=== PATIENT | male | born 1940 | race Asian ===

== ENCOUNTER 2022-01-26 12:15 | Inpatient (IN) | payer MEDICARE, OTHER ==
[~2022-01-26] VITALS: Ht 157.5 cm; Wt 78.5 kg
[2022-01-26 14:30] VITALS: BP 116/68
[2022-01-26] MEDS ORDERED: HYDROCODONE/ACETAMINOPHEN 10-325 MG TABLET PO PRN (14:45)
[2022-01-26] MEDS ORDERED: ACETAMINOPHEN 325 MG TABLET PO PRN (14:45)
[2022-01-26] MEDS: HYDROCODONE/ACETAMINOPHEN 5-325 MG TABLET PO PRN (20:29)
[2022-01-26] MEDS: ATORVASTATIN CALCIUM 40 MG TABLET PO SCH (20:29)
[2022-01-26] MEDS: TAMSULOSIN HCL 0.4 MG CAPSULE PO SCH (20:30)
[2022-01-26] MEDS: SENNA 187 MG TABLET PO SCH (20:30)
[2022-01-26] MEDS: DOCUSATE SODIUM 100 MG CAPSULE PO SCH (20:30)
[2022-01-26] MEDS ORDERED: AmLODIPine BESYLATE 5 MG TABLET PO SCH (21:00)
[2022-01-26 21:29] VITALS: BP 123/56
[2022-01-26] MEDS: ETHYL ALCOHOL 62% ANTISEPTIC NASAL SANITIZER 0.6 ML AMPUL NASAL SCH (22:36)
[2022-01-27] MEDS ORDERED: LOSA-382 PO (03:24)
[2022-01-27] MEDS ORDERED: AMLO-258 PO (03:24)
[2022-01-27] MEDS ORDERED: ALLO-45 PO (03:24)
[2022-01-27] MEDS ORDERED: TAMS-13 PO (03:24)
[2022-01-27] MEDS ORDERED: ATOR40TA28 PO (03:24)
[2022-01-27] MEDS ORDERED: CLOB15OI17 TP (03:24)
[2022-01-27] MEDS ORDERED: METO-558 PO (03:24)
[2022-01-27] MEDS ORDERED: POLY17PO47 PO (03:24)
[2022-01-27] MEDS ORDERED: CALC60CR6 TP (03:24)
[2022-01-27] MEDS ORDERED: APIX5TAB PO (03:24)
[2022-01-27] MEDS ORDERED: INDO-16 PO (03:24)
[2022-01-27 06:28] LABS: BASOPHILS % (AUTO) 0.1 % (0.0-2.0); EOSINOPHILS % (AUTO) 1.7 % (1.0-6.0); HEMATOCRIT 32.6 % (41-53); HEMOGLOBIN 10.8 g/dL (13.5-17.5); LYMPHOCYTES # (AUTO) 0.5 K/uL (1.0-4.8); LYMPHOCYTES % (AUTO) 5.7 % (22.0-44.0); MEAN CORPUSCULAR HEMOGLOBIN 28.4 pg (26.0-34.0); MEAN CORPUSCULAR HGB CONC 33.2 G/dL (31.0-37.0); MEAN CORPUSCULAR VOLUME 86 fL (80-100); MONOCYTES # (AUTO) 1.1 K/uL (0.1-1.0); MONOCYTES % (AUTO) 12.8 % (2.0-9.0); NEUTROPHILS # (AUTO) 6.8 K/uL (1.8-7.7); NEUTROPHILS % (AUTO) 79.7 % (40.0-70.0); PLATELET COUNT (AUTO) 194 K/uL (150-450); RED BLOOD CELL COUNT(AUTO) 3.81 MIL/uL (4.50-5.90); RED CELL DISTRIBUTION WIDTH 13.9 % (11.5-14.5)
[2022-01-27 06:46] LABS: ALANINE AMINOTRANSFERASE 37 U/L (12-78); ALBUMIN 2.1 g/dL (3.4-5.0); ALKALINE PHOSPHATASE 120 U/L (46-116); ANION GAP 11 mmol/L (8-16); ASPARTATE AMINOTRANSFERASE 43 U/L (15-37); BILIRUBIN,TOTAL 0.9 mg/dL (0.1-1.0); CALCIUM, TOTAL 8.9 mg/dL (8.8-10.5); CARBON DIOXIDE 29 mmol/L (22-29); CHLORIDE 94 mmol/L (98-107); CREATININE 0.69 mg/dL (0.60-1.30); GLUCOSE,RANDOM 158 mg/dL (70-110); POTASSIUM 4.6 mmol/L (3.5-5.1); SODIUM SERUM 134 mmol/L (136-145); TOTAL PROTEIN, SERUM 5.7 g/dL (6.4-8.2); UREA NITROGEN, BLOOD 21 mg/dL (7-18)
[2022-01-27 06:59] LABS: GLOMERULAR FILTR. RATE CALC > 60 mL/min (>60)
[2022-01-27 08:00] VITALS: BP 99/60
[2022-01-27] MEDS: ETHYL ALCOHOL 62% ANTISEPTIC NASAL SANITIZER 0.6 ML AMPUL NASAL SCH ×2 (08:25→20:29)
[2022-01-27] MEDS: DOCUSATE SODIUM 100 MG CAPSULE PO SCH ×2 (08:25→20:29)
[2022-01-27] MEDS: ALLOPURINOL 300 MG TABLET PO SCH (08:25)
[2022-01-27] MEDS: OXYGEN THERAPY IH SCH ×2 (08:26→20:28)
[2022-01-27] MEDS: LOSARTAN POTASSIUM 50 MG TABLET PO SCH (08:39)
[2022-01-27] MEDS: METOPROLOL SUCCINATE 50 MG ER TABLET PO SCH (08:40)
[2022-01-27 09:00] VITALS: BP 89/55
[2022-01-27] MEDS ORDERED: AmLODIPine BESYLATE 10 MG TABLET PO SCH (09:00)
[2022-01-27] MEDS: MULTIVITAMINS WITH MINERALS, THERAPEUTIC TABLET PO SCH (11:28)
[2022-01-27] MEDS: ATORVASTATIN CALCIUM 40 MG TABLET PO SCH (20:29)
[2022-01-27] MEDS: SENNA 187 MG TABLET PO SCH (20:29)
[2022-01-27] MEDS: TAMSULOSIN HCL 0.4 MG CAPSULE PO SCH (20:29)
[2022-01-27 20:30] VITALS: BP 139/59
[2022-01-27] MEDS: HYDROCODONE/ACETAMINOPHEN 5-325 MG TABLET PO PRN (20:30)
[2022-01-27] MEDS: CALCIPOTRIENE 0.005% TP SCH (20:31)
[2022-01-27] MEDS ORDERED: AmLODIPine BESYLATE 5 MG TABLET PO SCH (21:00)
[2022-01-28 08:01] VITALS: BP_SYST 115; BP_SYST 132; BP_DIAS 53; BP_DIAS 65
[2022-01-28] MEDS: ALLOPURINOL 300 MG TABLET PO SCH (08:21)
[2022-01-28] MEDS: LOSARTAN POTASSIUM 50 MG TABLET PO SCH (08:21)
[2022-01-28] MEDS: METOPROLOL SUCCINATE 50 MG ER TABLET PO SCH (08:21)
[2022-01-28] MEDS: DOCUSATE SODIUM 100 MG CAPSULE PO SCH ×2 (08:21→20:49)
[2022-01-28] MEDS: MULTIVITAMINS WITH MINERALS, THERAPEUTIC TABLET PO SCH (08:21)
[2022-01-28] MEDS: OXYGEN THERAPY IH SCH ×2 (08:21→20:48)
[2022-01-28] MEDS: ETHYL ALCOHOL 62% ANTISEPTIC NASAL SANITIZER 0.6 ML AMPUL NASAL SCH ×2 (08:26→20:49)
[2022-01-28] MEDS: HYDROCODONE/ACETAMINOPHEN 5-325 MG TABLET PO PRN ×2 (11:00→20:51)
[2022-01-28] MEDS: FAMOTIDINE 20 MG TABLET PO SCH (15:58)
[2022-01-28] MEDS ORDERED: *PATIENT'S OWN MED [ENTER DRUG, DOSE, FREQUENCY IN COMMENTS] CLINICAL ONE (17:15)
[2022-01-28 20:15] VITALS: BP 118/61
[2022-01-28] MEDS: TAMSULOSIN HCL 0.4 MG CAPSULE PO SCH (20:49)
[2022-01-28] MEDS: APIXABAN 5 MG TABLET PO SCH (20:49)
[2022-01-28] MEDS: SENNA 187 MG TABLET PO SCH (20:50)
[2022-01-28] MEDS: ATORVASTATIN CALCIUM 40 MG TABLET PO SCH (20:50)
[2022-01-28] MEDS: CLOBETASOL 0.05% 15 GM OINTMENT TP SCH (20:50)
[2022-01-28] MEDS: METHYLSULFONYLMETHANE PO SCH (20:52)
[2022-01-28] MEDS: CHONDROITIN PO SCH (20:52)
[2022-01-28] MEDS: GLUCOSAMINE PO SCH (20:52)
[2022-01-29] MEDS: FAMOTIDINE 20 MG TABLET PO SCH ×2 (05:57→16:21)
[2022-01-29 08:05] VITALS: BP 127/60
[2022-01-29] MEDS: GLUCOSAMINE PO SCH ×2 (08:19→20:49)
[2022-01-29] MEDS: ETHYL ALCOHOL 62% ANTISEPTIC NASAL SANITIZER 0.6 ML AMPUL NASAL SCH ×2 (08:19→20:47)
[2022-01-29] MEDS: METHYLSULFONYLMETHANE PO SCH ×2 (08:19→20:49)
[2022-01-29] MEDS: CHONDROITIN PO SCH ×2 (08:19→20:49)
[2022-01-29] MEDS: LOSARTAN POTASSIUM 50 MG TABLET PO SCH (08:20)
[2022-01-29] MEDS: METOPROLOL SUCCINATE 50 MG ER TABLET PO SCH (08:20)
[2022-01-29] MEDS: APIXABAN 5 MG TABLET PO SCH ×2 (08:21→20:47)
[2022-01-29] MEDS: MULTIVITAMINS WITH MINERALS, THERAPEUTIC TABLET PO SCH (08:21)
[2022-01-29] MEDS: DOCUSATE SODIUM 100 MG CAPSULE PO SCH ×2 (08:21→20:47)
[2022-01-29] MEDS: ALLOPURINOL 300 MG TABLET PO SCH (08:21)
[2022-01-29] MEDS: OXYGEN THERAPY IH SCH ×2 (08:21→20:47)
[2022-01-29] MEDS: POLYETHYLENE GLYCOL 3350 17 GM PACKET PO PRN (18:22)
[2022-01-29 18:24] LABS: APPEARANCE,URINE CLEAR (CLEAR); BILIRUBIN,URINE NEGATIVE (NEGATIVE); GLUCOSE, URINE (UA) NEGATIVE (NEGATIVE); KETONES,URINE NEGATIVE (NEGATIVE); LEUKOCYTE ESTERASE ,URINE NEGATIVE (NEGATIVE); NITRATE,URINE NEGATIVE (NEGATIVE); OCCULT BLOOD,URINE NEGATIVE (NEGATIVE); PH,URINE 6.5 (5.0-8.0); PROTEIN,URINE NEGATIVE (NEGATIVE); SPECIFIC GRAVITIY, URINE 1.017 (1.003-1.030)
[2022-01-29 18:37] LABS: BACTERIA,URINE None Seen /HPF (None Seen); RBC,URINE None Seen /HPF (0-2); WBC,URINE None Seen /HPF (0-5)
[2022-01-29 20:05] VITALS: BP 141/63
[2022-01-29] MEDS: MELATONIN 3 MG TABLET PO PRN (20:47)
[2022-01-29] MEDS: ATORVASTATIN CALCIUM 40 MG TABLET PO SCH (20:47)
[2022-01-29] MEDS: SENNA 187 MG TABLET PO SCH (20:47)
[2022-01-29] MEDS: TAMSULOSIN HCL 0.4 MG CAPSULE PO SCH (20:47)
[2022-01-29] MEDS: CALCIPOTRIENE 0.005% TP SCH (20:47)
[2022-01-30] MEDS: FAMOTIDINE 20 MG TABLET PO SCH ×2 (06:22→16:31)
[2022-01-30] MEDS: OXYGEN THERAPY IH SCH ×2 (07:50→22:55)
[2022-01-30] MEDS: METOPROLOL SUCCINATE 50 MG ER TABLET PO SCH (07:51)
[2022-01-30] MEDS: ALLOPURINOL 300 MG TABLET PO SCH (07:51)
[2022-01-30] MEDS: LOSARTAN POTASSIUM 50 MG TABLET PO SCH (07:51)
[2022-01-30] MEDS: APIXABAN 5 MG TABLET PO SCH ×2 (07:51→22:56)
[2022-01-30] MEDS: MULTIVITAMINS WITH MINERALS, THERAPEUTIC TABLET PO SCH (07:51)
[2022-01-30] MEDS: DOCUSATE SODIUM 100 MG CAPSULE PO SCH ×2 (07:51→22:56)
[2022-01-30] MEDS: ETHYL ALCOHOL 62% ANTISEPTIC NASAL SANITIZER 0.6 ML AMPUL NASAL SCH ×2 (07:51→22:57)
[2022-01-30] MEDS: METHYLSULFONYLMETHANE PO SCH ×3 (07:52→23:09)
[2022-01-30] MEDS: CHONDROITIN PO SCH ×3 (07:52→23:09)
[2022-01-30] MEDS: GLUCOSAMINE PO SCH ×3 (07:52→23:09)
[2022-01-30 08:13] VITALS: BP 119/64
[2022-01-30 13:49] VITALS: BP 134/62
[2022-01-30 19:50] VITALS: BP 128/61
[2022-01-30] MEDS: CLOBETASOL 0.05% 15 GM OINTMENT TP SCH (22:55)
[2022-01-30] MEDS: SENNA 187 MG TABLET PO SCH (22:56)
[2022-01-30] MEDS: BISACODYL 10 MG RECTAL RECTAL SUPPOSITORY PR PRN (22:56)
[2022-01-30] MEDS: TAMSULOSIN HCL 0.4 MG CAPSULE PO SCH (22:56)
[2022-01-30] MEDS: ATORVASTATIN CALCIUM 40 MG TABLET PO SCH (22:57)
[2022-01-30] MEDS: MELATONIN 3 MG TABLET PO PRN (22:57)
[2022-01-31] MEDS: FAMOTIDINE 20 MG TABLET PO SCH ×2 (06:08→15:52)
[2022-01-31 07:18] LABS: ANION GAP 2 mmol/L (8-16); CALCIUM, TOTAL 8.3 mg/dL (8.8-10.5); CARBON DIOXIDE 33 mmol/L (22-29); CHLORIDE 100 mmol/L (98-107); CREATININE 0.46 mg/dL (0.60-1.30); GLUCOSE,RANDOM 118 mg/dL (70-110); POTASSIUM 4.2 mmol/L (3.5-5.1); SODIUM SERUM 135 mmol/L (136-145); UREA NITROGEN, BLOOD 12 mg/dL (7-18)
[2022-01-31 07:35] LABS: GLOMERULAR FILTR. RATE CALC > 60 mL/min (>60)
[2022-01-31] MEDS: OXYGEN THERAPY IH SCH ×2 (07:44→20:36)
[2022-01-31] MEDS: MULTIVITAMINS WITH MINERALS, THERAPEUTIC TABLET PO SCH (07:45)
[2022-01-31] MEDS: METOPROLOL SUCCINATE 50 MG ER TABLET PO SCH (07:45)
[2022-01-31] MEDS: LOSARTAN POTASSIUM 50 MG TABLET PO SCH (07:45)
[2022-01-31] MEDS: ETHYL ALCOHOL 62% ANTISEPTIC NASAL SANITIZER 0.6 ML AMPUL NASAL SCH ×2 (07:45→20:37)
[2022-01-31] MEDS: ALLOPURINOL 300 MG TABLET PO SCH (07:45)
[2022-01-31] MEDS: APIXABAN 5 MG TABLET PO SCH ×2 (07:45→20:37)
[2022-01-31] MEDS: DOCUSATE SODIUM 250 MG CAPSULE PO SCH ×2 (07:45→20:37)
[2022-01-31] MEDS: CHONDROITIN PO SCH ×2 (07:47→20:37)
[2022-01-31] MEDS: METHYLSULFONYLMETHANE PO SCH ×2 (07:47→20:37)
[2022-01-31] MEDS: GLUCOSAMINE PO SCH ×2 (07:47→20:37)
[2022-01-31 08:20] VITALS: BP 120/65
[2022-01-31] MEDS: HYDROCODONE/ACETAMINOPHEN 5-325 MG TABLET PO PRN (14:03)
[2022-01-31] MEDS ORDERED: *PATIENT'S OWN MED [ENTER DRUG, DOSE, FREQUENCY IN COMMENTS] CLINICAL ONE (18:15)
[2022-01-31] MEDS: TAMSULOSIN HCL 0.4 MG CAPSULE PO SCH (20:37)
[2022-01-31] MEDS: ATORVASTATIN CALCIUM 40 MG TABLET PO SCH (20:37)
[2022-01-31] MEDS: SENNA 187 MG TABLET PO SCH (20:37)
[2022-01-31] MEDS: CALCIPOTRIENE 0.005% TP SCH (20:38)
[2022-01-31 20:40] VITALS: BP 119/59
[2022-01-31] MEDS: CLOBETASOL 0.05% TP PRN (21:58)
[2022-01-31] MEDS: MELATONIN 3 MG TABLET PO PRN (21:59)
[2022-02-01] MEDS: FAMOTIDINE 20 MG TABLET PO SCH ×2 (06:45→16:24)
[2022-02-01] MEDS: LOSARTAN POTASSIUM 50 MG TABLET PO SCH (07:34)
[2022-02-01] MEDS: METHYLSULFONYLMETHANE PO SCH ×2 (07:34→21:03)
[2022-02-01] MEDS: APIXABAN 5 MG TABLET PO SCH ×2 (07:34→21:03)
[2022-02-01] MEDS: MULTIVITAMINS WITH MINERALS, THERAPEUTIC TABLET PO SCH (07:34)
[2022-02-01] MEDS: GLUCOSAMINE PO SCH ×2 (07:34→21:03)
[2022-02-01] MEDS: DOCUSATE SODIUM 250 MG CAPSULE PO SCH ×2 (07:34→21:04)
[2022-02-01] MEDS: ETHYL ALCOHOL 62% ANTISEPTIC NASAL SANITIZER 0.6 ML AMPUL NASAL SCH ×2 (07:34→21:05)
[2022-02-01] MEDS: CHONDROITIN PO SCH ×2 (07:34→21:03)
[2022-02-01] MEDS: ALLOPURINOL 300 MG TABLET PO SCH (07:41)
[2022-02-01] MEDS: OXYGEN THERAPY IH SCH ×2 (07:52→20:00)
[2022-02-01] MEDS: METOPROLOL SUCCINATE 50 MG ER TABLET PO SCH (07:52)
[2022-02-01 09:00] VITALS: BP 98/64
[2022-02-01 09:51] VITALS: BP 99/64
[2022-02-01 12:30] VITALS: BP 100/61
[2022-02-01] MEDS: DICLOFENAC SODIUM 1% 100 GM GEL [2GM] TP SCH ×2 (16:24→21:05)
[2022-02-01 19:34] VITALS: BP 122/64
[2022-02-01] MEDS: ATORVASTATIN CALCIUM 40 MG TABLET PO SCH (21:03)
[2022-02-01] MEDS: MELATONIN 3 MG TABLET PO PRN (21:04)
[2022-02-01] MEDS: TAMSULOSIN HCL 0.4 MG CAPSULE PO SCH (21:04)
[2022-02-01] MEDS: SENNA 187 MG TABLET PO SCH (21:04)
[2022-02-01] MEDS: CLOBETASOL 0.05% 15 GM OINTMENT TP SCH (21:05)
[2022-02-01] MEDS: BISACODYL 10 MG RECTAL RECTAL SUPPOSITORY PR PRN (21:12)
[2022-02-02] MEDS: FAMOTIDINE 20 MG TABLET PO SCH ×2 (06:02→16:03)
[2022-02-02 07:45] VITALS: BP 144/70
[2022-02-02] MEDS ORDERED: INDOMETHACIN 25 MG CAPSULE PO PRN (08:30)
[2022-02-02] MEDS: ETHYL ALCOHOL 62% ANTISEPTIC NASAL SANITIZER 0.6 ML AMPUL NASAL SCH ×2 (08:49→20:44)
[2022-02-02] MEDS: OXYGEN THERAPY IH SCH ×2 (08:49→20:00)
[2022-02-02] MEDS: GLUCOSAMINE PO SCH ×2 (08:50→20:45)
[2022-02-02] MEDS: DOCUSATE SODIUM 250 MG CAPSULE PO SCH ×2 (08:50→20:44)
[2022-02-02] MEDS: METHYLSULFONYLMETHANE PO SCH ×2 (08:50→20:45)
[2022-02-02] MEDS: CHONDROITIN PO SCH ×2 (08:50→20:45)
[2022-02-02] MEDS: LOSARTAN POTASSIUM 50 MG TABLET PO SCH (08:51)
[2022-02-02] MEDS: APIXABAN 5 MG TABLET PO SCH ×2 (08:51→20:44)
[2022-02-02] MEDS: ALLOPURINOL 300 MG TABLET PO SCH (08:52)
[2022-02-02] MEDS: DICLOFENAC SODIUM 1% 100 GM GEL [2GM] TP SCH ×3 (08:52→20:45)
[2022-02-02] MEDS: METOPROLOL SUCCINATE 50 MG ER TABLET PO SCH (08:52)
[2022-02-02] MEDS: MULTIVITAMINS WITH MINERALS, THERAPEUTIC TABLET PO SCH (08:52)
[2022-02-02] MEDS: OMEPRAZOLE 20 MG CAPSULE PO SCH ×2 (08:52→09:05)
[2022-02-02 20:00] VITALS: BP 142/60
[2022-02-02] MEDS: ATORVASTATIN CALCIUM 40 MG TABLET PO SCH (20:44)
[2022-02-02] MEDS: TAMSULOSIN HCL 0.4 MG CAPSULE PO SCH (20:44)
[2022-02-02] MEDS: SENNA 187 MG TABLET PO SCH (20:44)
[2022-02-02] MEDS: CALCIPOTRIENE 0.005% TP SCH (20:45)
[2022-02-03] MEDS ORDERED: DOCU-350 PO (02:40)
[2022-02-03] MEDS ORDERED: FAMO20 PO (02:40)
[2022-02-03] MEDS ORDERED: MULT-413 PO (02:40)
[2022-02-03] MEDS ORDERED: GLUC-206 PO (02:40)
[2022-02-03] MEDS ORDERED: OMEP20 PO (02:40)
[2022-02-03] MEDS ORDERED: SENN8.6T90 PO (02:56)
[2022-02-03] MEDS ORDERED: DICL100G51 TP (02:56)
[2022-02-03] MEDS: FAMOTIDINE 20 MG TABLET PO SCH ×2 (06:08→15:16)
[2022-02-03] MEDS: OXYGEN THERAPY IH SCH ×2 (08:04→20:00)
[2022-02-03] MEDS: CHONDROITIN PO SCH ×2 (08:05→21:13)
[2022-02-03] MEDS: GLUCOSAMINE PO SCH ×2 (08:05→21:13)
[2022-02-03] MEDS: METHYLSULFONYLMETHANE PO SCH ×2 (08:05→21:13)
[2022-02-03] MEDS: ETHYL ALCOHOL 62% ANTISEPTIC NASAL SANITIZER 0.6 ML AMPUL NASAL SCH ×2 (08:06→21:13)
[2022-02-03] MEDS: DOCUSATE SODIUM 250 MG CAPSULE PO SCH ×2 (08:07→21:12)
[2022-02-03] MEDS: METOPROLOL SUCCINATE 50 MG ER TABLET PO SCH (08:09)
[2022-02-03] MEDS: LOSARTAN POTASSIUM 50 MG TABLET PO SCH (08:11)
[2022-02-03] MEDS: OMEPRAZOLE 20 MG CAPSULE PO SCH (08:12)
[2022-02-03] MEDS: MULTIVITAMINS WITH MINERALS, THERAPEUTIC TABLET PO SCH (08:13)
[2022-02-03] MEDS: ALLOPURINOL 300 MG TABLET PO SCH (08:13)
[2022-02-03] MEDS: APIXABAN 5 MG TABLET PO SCH ×2 (08:13→21:12)
[2022-02-03] MEDS: DICLOFENAC SODIUM 1% 100 GM GEL [2GM] TP SCH ×3 (08:15→21:13)
[2022-02-03 08:35] VITALS: BP 118/64
[2022-02-03 08:51] LABS: BASOPHILS % (AUTO) 0.3 % (0.0-2.0); EOSINOPHILS % (AUTO) 4.9 % (1.0-6.0); HEMATOCRIT 32.2 % (41-53); HEMOGLOBIN 10.6 g/dL (13.5-17.5); LYMPHOCYTES # (AUTO) 0.5 K/uL (1.0-4.8); LYMPHOCYTES % (AUTO) 6.5 % (22.0-44.0); MEAN CORPUSCULAR HEMOGLOBIN 28.1 pg (26.0-34.0); MEAN CORPUSCULAR HGB CONC 32.9 G/dL (31.0-37.0); MEAN CORPUSCULAR VOLUME 85 fL (80-100); MONOCYTES # (AUTO) 0.5 K/uL (0.1-1.0); NEUTROPHILS # (AUTO) 5.8 K/uL (1.8-7.7); NEUTROPHILS % (AUTO) 81.3 % (40.0-70.0); PLATELET COUNT (AUTO) 296 K/uL (150-450); RED BLOOD CELL COUNT(AUTO) 3.78 MIL/uL (4.50-5.90); RED CELL DISTRIBUTION WIDTH 14.1 % (11.5-14.5)
[2022-02-03 09:03] LABS: ANION GAP 3 mmol/L (8-16); CALCIUM, TOTAL 8.6 mg/dL (8.8-10.5); CARBON DIOXIDE 32 mmol/L (22-29); CHLORIDE 100 mmol/L (98-107); CREATININE 0.53 mg/dL (0.60-1.30); GLUCOSE,RANDOM 170 mg/dL (70-110); SODIUM SERUM 135 mmol/L (136-145); UREA NITROGEN, BLOOD 11 mg/dL (7-18); URIC ACID 2.5 mg/dL (2.6-7.2)
[2022-02-03 09:04] LABS: GLOMERULAR FILTR. RATE CALC > 60 mL/min (>60)
[2022-02-03] MEDS: CLOBETASOL 0.05% TP PRN ×2 (13:16→21:44)
[2022-02-03 20:00] VITALS: BP 117/69
[2022-02-03] MEDS: TAMSULOSIN HCL 0.4 MG CAPSULE PO SCH (21:12)
[2022-02-03] MEDS: SENNA 187 MG TABLET PO SCH (21:13)
[2022-02-03] MEDS: CALCIPOTRIENE 0.005% TP SCH (21:13)
[2022-02-03] MEDS: ATORVASTATIN CALCIUM 40 MG TABLET PO SCH (21:13)
[2022-02-03] MEDS: CLOBETASOL 0.05% 15 GM OINTMENT TP SCH (21:40)
[2022-02-04] MEDS: FAMOTIDINE 20 MG TABLET PO SCH ×2 (05:56→15:59)
[2022-02-04 08:01] VITALS: BP 125/65
[2022-02-04] MEDS: OXYGEN THERAPY IH SCH ×2 (08:28→20:00)
[2022-02-04] MEDS: METHYLSULFONYLMETHANE PO SCH ×2 (08:29→20:17)
[2022-02-04] MEDS: DICLOFENAC SODIUM 1% 100 GM GEL [2GM] TP SCH ×3 (08:29→20:19)
[2022-02-04] MEDS: GLUCOSAMINE PO SCH ×2 (08:29→20:17)
[2022-02-04] MEDS: APIXABAN 5 MG TABLET PO SCH ×2 (08:29→20:17)
[2022-02-04] MEDS: CHONDROITIN PO SCH ×2 (08:29→20:17)
[2022-02-04] MEDS: DOCUSATE SODIUM 250 MG CAPSULE PO SCH ×2 (08:30→20:17)
[2022-02-04] MEDS: MULTIVITAMINS WITH MINERALS, THERAPEUTIC TABLET PO SCH (08:30)
[2022-02-04] MEDS: METOPROLOL SUCCINATE 50 MG ER TABLET PO SCH (08:30)
[2022-02-04] MEDS: LOSARTAN POTASSIUM 50 MG TABLET PO SCH (08:31)
[2022-02-04] MEDS: ETHYL ALCOHOL 62% ANTISEPTIC NASAL SANITIZER 0.6 ML AMPUL NASAL SCH ×2 (08:31→20:17)
[2022-02-04] MEDS: ALLOPURINOL 300 MG TABLET PO SCH (08:33)
[2022-02-04] MEDS: SENNA 187 MG TABLET PO SCH (20:18)
[2022-02-04] MEDS: ATORVASTATIN CALCIUM 40 MG TABLET PO SCH (20:18)
[2022-02-04] MEDS: CEPHALEXIN MONOHYDRATE 500 MG CAPSULE PO SCH (20:18)
[2022-02-04] MEDS: TAMSULOSIN HCL 0.4 MG CAPSULE PO SCH (20:19)
[2022-02-04] MEDS: MELATONIN 3 MG TABLET PO PRN (20:22)
[2022-02-04 20:45] VITALS: BP 129/61
[2022-02-05] MEDS: FAMOTIDINE 20 MG TABLET PO SCH ×2 (06:18→15:59)
[2022-02-05 08:10] VITALS: BP 118/61
[2022-02-05] MEDS: OXYGEN THERAPY IH SCH ×2 (08:50→20:00)
[2022-02-05] MEDS: CHONDROITIN PO SCH ×2 (08:57→20:10)
[2022-02-05] MEDS: GLUCOSAMINE PO SCH ×2 (08:57→20:10)
[2022-02-05] MEDS: DICLOFENAC SODIUM 1% 100 GM GEL [2GM] TP SCH ×3 (08:57→20:11)
[2022-02-05] MEDS: ETHYL ALCOHOL 62% ANTISEPTIC NASAL SANITIZER 0.6 ML AMPUL NASAL SCH ×2 (08:57→20:12)
[2022-02-05] MEDS: METHYLSULFONYLMETHANE PO SCH ×2 (08:57→20:10)
[2022-02-05] MEDS: DOCUSATE SODIUM 250 MG CAPSULE PO SCH ×2 (08:58→20:08)
[2022-02-05] MEDS: ALLOPURINOL 300 MG TABLET PO SCH (08:58)
[2022-02-05] MEDS: LOSARTAN POTASSIUM 50 MG TABLET PO SCH (08:58)
[2022-02-05] MEDS: MULTIVITAMINS WITH MINERALS, THERAPEUTIC TABLET PO SCH (08:58)
[2022-02-05] MEDS: APIXABAN 5 MG TABLET PO SCH ×2 (08:58→20:09)
[2022-02-05] MEDS: CEPHALEXIN MONOHYDRATE 500 MG CAPSULE PO SCH ×4 (08:58→20:09)
[2022-02-05] MEDS: METOPROLOL SUCCINATE 50 MG ER TABLET PO SCH (08:59)
[2022-02-05] MEDS: CLOBETASOL 0.05% TP PRN ×2 (09:07→20:35)
[2022-02-05 11:02] LABS: BASOPHILS % (AUTO) 0.6 % (0.0-2.0); EOSINOPHILS % (AUTO) 7.9 % (1.0-6.0); HEMATOCRIT 32.4 % (41-53); HEMOGLOBIN 10.4 g/dL (13.5-17.5); LYMPHOCYTES # (AUTO) 0.5 K/uL (1.0-4.8); LYMPHOCYTES % (AUTO) 9.3 % (22.0-44.0); MEAN CORPUSCULAR HEMOGLOBIN 27.7 pg (26.0-34.0); MEAN CORPUSCULAR HGB CONC 32.2 G/dL (31.0-37.0); MEAN CORPUSCULAR VOLUME 86 fL (80-100); MONOCYTES # (AUTO) 0.5 K/uL (0.1-1.0); MONOCYTES % (AUTO) 9.2 % (2.0-9.0); NEUTROPHILS # (AUTO) 4.3 K/uL (1.8-7.7); PLATELET COUNT (AUTO) 331 K/uL (150-450); RED BLOOD CELL COUNT(AUTO) 3.77 MIL/uL (4.50-5.90); RED CELL DISTRIBUTION WIDTH 14.5 % (11.5-14.5)
[2022-02-05 11:56] LABS: ANION GAP 4 mmol/L (8-16); CARBON DIOXIDE 30 mmol/L (22-29); CHLORIDE 103 mmol/L (98-107); CREATININE 0.55 mg/dL (0.60-1.30); GLUCOSE,RANDOM 121 mg/dL (70-110); POTASSIUM 4.4 mmol/L (3.5-5.1); SODIUM SERUM 137 mmol/L (136-145); UREA NITROGEN, BLOOD 13 mg/dL (7-18)
[2022-02-05 11:57] LABS: GLOMERULAR FILTR. RATE CALC > 60 mL/min (>60)
[2022-02-05 12:12] LABS: ERYTHROCYTE SEDIMENTATION RATE 68 MM/HR (0-15)
[2022-02-05 12:33] LABS: C-REACTIVE PROTEIN QUANT 6.39 mg/dL (0.00-0.30)
[2022-02-05] MEDS: POLYETHYLENE GLYCOL 3350 17 GM PACKET PO PRN (13:12)
[2022-02-05] MEDS: TAMSULOSIN HCL 0.4 MG CAPSULE PO SCH (20:08)
[2022-02-05] MEDS: MELATONIN 3 MG TABLET PO PRN (20:09)
[2022-02-05] MEDS: ATORVASTATIN CALCIUM 40 MG TABLET PO SCH (20:09)
[2022-02-05] MEDS: SENNA 187 MG TABLET PO SCH (20:09)
[2022-02-05] MEDS: CLOBETASOL 0.05% 15 GM OINTMENT TP SCH (20:10)
[2022-02-05 20:30] VITALS: BP 121/54
[2022-02-06] MEDS: HYDROCODONE/ACETAMINOPHEN 5-325 MG TABLET PO PRN (04:34)
[2022-02-06] MEDS: FAMOTIDINE 20 MG TABLET PO SCH ×2 (06:36→16:19)
[2022-02-06 07:35] VITALS: BP 133/72
[2022-02-06] MEDS: OXYGEN THERAPY IH SCH ×2 (08:14→20:00)
[2022-02-06] MEDS: ETHYL ALCOHOL 62% ANTISEPTIC NASAL SANITIZER 0.6 ML AMPUL NASAL SCH ×2 (08:14→20:33)
[2022-02-06] MEDS: METHYLSULFONYLMETHANE PO SCH ×2 (08:14→20:34)
[2022-02-06] MEDS: GLUCOSAMINE PO SCH ×2 (08:14→20:34)
[2022-02-06] MEDS: CHONDROITIN PO SCH ×2 (08:14→20:34)
[2022-02-06] MEDS: METOPROLOL SUCCINATE 50 MG ER TABLET PO SCH (08:15)
[2022-02-06] MEDS: DOCUSATE SODIUM 250 MG CAPSULE PO SCH ×2 (08:15→20:35)
[2022-02-06] MEDS: APIXABAN 5 MG TABLET PO SCH ×2 (08:15→20:35)
[2022-02-06] MEDS: MULTIVITAMINS WITH MINERALS, THERAPEUTIC TABLET PO SCH (08:15)
[2022-02-06] MEDS: LOSARTAN POTASSIUM 50 MG TABLET PO SCH (08:15)
[2022-02-06] MEDS: ALLOPURINOL 300 MG TABLET PO SCH (08:16)
[2022-02-06] MEDS: DICLOFENAC SODIUM 1% 100 GM GEL [2GM] TP SCH ×3 (08:16→20:35)
[2022-02-06] MEDS: CEPHALEXIN MONOHYDRATE 500 MG CAPSULE PO SCH ×4 (08:16→20:35)
[2022-02-06] MEDS: ATORVASTATIN CALCIUM 40 MG TABLET PO SCH (20:35)
[2022-02-06] MEDS: SENNA 187 MG TABLET PO SCH (20:35)
[2022-02-06] MEDS: TAMSULOSIN HCL 0.4 MG CAPSULE PO SCH (20:37)
[2022-02-06] MEDS: MELATONIN 3 MG TABLET PO PRN (20:41)
[2022-02-06 21:00] VITALS: BP 127/80
[2022-02-06] MEDS: CALCIPOTRIENE 0.005% TP SCH (21:18)
[2022-02-07] MEDS: HYDROCODONE/ACETAMINOPHEN 5-325 MG TABLET PO PRN (04:25)
[2022-02-07] MEDS: FAMOTIDINE 20 MG TABLET PO SCH ×2 (06:04→16:11)
[2022-02-07 07:35] VITALS: BP 127/61
[2022-02-07] MEDS: GLUCOSAMINE PO SCH ×2 (07:48→20:52)
[2022-02-07] MEDS: METHYLSULFONYLMETHANE PO SCH ×2 (07:48→20:52)
[2022-02-07] MEDS: ETHYL ALCOHOL 62% ANTISEPTIC NASAL SANITIZER 0.6 ML AMPUL NASAL SCH ×2 (07:48→20:52)
[2022-02-07] MEDS: CHONDROITIN PO SCH ×2 (07:48→20:52)
[2022-02-07] MEDS: OXYGEN THERAPY IH SCH ×2 (07:48→20:00)
[2022-02-07] MEDS: DOCUSATE SODIUM 250 MG CAPSULE PO SCH ×2 (07:48→20:51)
[2022-02-07] MEDS: APIXABAN 5 MG TABLET PO SCH ×3 (07:49→20:51)
[2022-02-07] MEDS: LOSARTAN POTASSIUM 50 MG TABLET PO SCH (07:49)
[2022-02-07] MEDS: ALLOPURINOL 300 MG TABLET PO SCH (07:50)
[2022-02-07] MEDS: METOPROLOL SUCCINATE 50 MG ER TABLET PO SCH (07:50)
[2022-02-07] MEDS: CEPHALEXIN MONOHYDRATE 500 MG CAPSULE PO SCH ×4 (07:50→20:51)
[2022-02-07] MEDS: MULTIVITAMINS WITH MINERALS, THERAPEUTIC TABLET PO SCH (07:50)
[2022-02-07] MEDS: DICLOFENAC SODIUM 1% 100 GM GEL [2GM] TP SCH ×3 (07:50→20:52)
[2022-02-07 20:20] VITALS: BP 138/66
[2022-02-07] MEDS: CLOBETASOL 0.05% 60 GM OINTMENT TP SCH (20:50)
[2022-02-07] MEDS: MELATONIN 3 MG TABLET PO PRN (20:51)
[2022-02-07] MEDS: SENNA 187 MG TABLET PO SCH (20:51)
[2022-02-07] MEDS: ATORVASTATIN CALCIUM 40 MG TABLET PO SCH (20:51)
[2022-02-07] MEDS: TAMSULOSIN HCL 0.4 MG CAPSULE PO SCH (20:51)
[2022-02-07] MEDS: CLOBETASOL 0.05% TP PRN (20:51)
[2022-02-08] MEDS: FAMOTIDINE 20 MG TABLET PO SCH ×2 (06:44→17:40)
[2022-02-08 08:10] VITALS: BP 104/42
[2022-02-08 09:00] VITALS: BP 111/53
[2022-02-08] MEDS: ETHYL ALCOHOL 62% ANTISEPTIC NASAL SANITIZER 0.6 ML AMPUL NASAL SCH ×2 (09:16→20:21)
[2022-02-08] MEDS: CEPHALEXIN MONOHYDRATE 500 MG CAPSULE PO SCH ×4 (09:16→20:22)
[2022-02-08] MEDS: ALLOPURINOL 300 MG TABLET PO SCH (09:17)
[2022-02-08] MEDS: MULTIVITAMINS WITH MINERALS, THERAPEUTIC TABLET PO SCH (09:17)
[2022-02-08] MEDS: DOCUSATE SODIUM 250 MG CAPSULE PO SCH ×2 (09:17→20:21)
[2022-02-08] MEDS: METOPROLOL SUCCINATE 50 MG ER TABLET PO SCH (09:17)
[2022-02-08] MEDS: APIXABAN 5 MG TABLET PO SCH ×2 (09:17→20:22)
[2022-02-08] MEDS: LOSARTAN POTASSIUM 50 MG TABLET PO SCH (09:17)
[2022-02-08] MEDS: CHONDROITIN PO SCH ×2 (09:18→20:22)
[2022-02-08] MEDS: METHYLSULFONYLMETHANE PO SCH ×2 (09:18→20:22)
[2022-02-08] MEDS: GLUCOSAMINE PO SCH ×2 (09:18→20:22)
[2022-02-08] MEDS: DICLOFENAC SODIUM 1% 100 GM GEL [2GM] TP SCH ×3 (09:19→20:23)
[2022-02-08] MEDS: OXYGEN THERAPY IH SCH ×2 (13:38→20:00)
[2022-02-08 20:10] VITALS: BP 137/59
[2022-02-08] MEDS: TAMSULOSIN HCL 0.4 MG CAPSULE PO SCH (20:22)
[2022-02-08] MEDS: MELATONIN 3 MG TABLET PO PRN (20:22)
[2022-02-08] MEDS: SENNA 187 MG TABLET PO SCH (20:22)
[2022-02-08] MEDS: ATORVASTATIN CALCIUM 40 MG TABLET PO SCH (20:22)
[2022-02-08] MEDS: CALCIPOTRIENE 0.005% TP SCH (20:23)
[2022-02-09] MEDS: FAMOTIDINE 20 MG TABLET PO SCH ×2 (06:47→17:14)
[2022-02-09 08:00] VITALS: BP 124/55
[2022-02-09] MEDS: DOCUSATE SODIUM 250 MG CAPSULE PO SCH ×2 (09:25→20:33)
[2022-02-09] MEDS: CHONDROITIN PO SCH ×2 (09:25→20:33)
[2022-02-09] MEDS: LOSARTAN POTASSIUM 50 MG TABLET PO SCH (09:25)
[2022-02-09] MEDS: METHYLSULFONYLMETHANE PO SCH ×2 (09:25→20:33)
[2022-02-09] MEDS: APIXABAN 5 MG TABLET PO SCH ×2 (09:25→20:33)
[2022-02-09] MEDS: CEPHALEXIN MONOHYDRATE 500 MG CAPSULE PO SCH ×4 (09:25→20:33)
[2022-02-09] MEDS: MULTIVITAMINS WITH MINERALS, THERAPEUTIC TABLET PO SCH (09:25)
[2022-02-09] MEDS: GLUCOSAMINE PO SCH ×2 (09:25→20:33)
[2022-02-09] MEDS: METOPROLOL SUCCINATE 50 MG ER TABLET PO SCH (09:26)
[2022-02-09] MEDS: ALLOPURINOL 300 MG TABLET PO SCH (09:26)
[2022-02-09] MEDS: DICLOFENAC SODIUM 1% 100 GM GEL [2GM] TP SCH ×3 (09:26→20:34)
[2022-02-09] MEDS: ETHYL ALCOHOL 62% ANTISEPTIC NASAL SANITIZER 0.6 ML AMPUL NASAL SCH ×2 (09:28→20:33)
[2022-02-09] MEDS: OXYGEN THERAPY IH SCH ×2 (13:47→20:00)
[2022-02-09] MEDS: CLOBETASOL 0.05% TP PRN (18:33)
[2022-02-09 20:00] VITALS: BP 145/76
[2022-02-09] MEDS: TAMSULOSIN HCL 0.4 MG CAPSULE PO SCH (20:33)
[2022-02-09] MEDS: SENNA 187 MG TABLET PO SCH (20:33)
[2022-02-09] MEDS: ATORVASTATIN CALCIUM 40 MG TABLET PO SCH (20:33)
[2022-02-09] MEDS: CLOBETASOL 0.05% 60 GM OINTMENT TP SCH (20:34)
[2022-02-10] MEDS: FAMOTIDINE 20 MG TABLET PO SCH ×2 (06:27→16:11)
[2022-02-10 07:35] VITALS: BP 147/67
[2022-02-10] MEDS: ETHYL ALCOHOL 62% ANTISEPTIC NASAL SANITIZER 0.6 ML AMPUL NASAL SCH ×2 (08:00→20:46)
[2022-02-10] MEDS: OXYGEN THERAPY IH SCH ×2 (08:00→20:00)
[2022-02-10] MEDS: CHONDROITIN PO SCH ×2 (08:01→20:47)
[2022-02-10] MEDS: MULTIVITAMINS WITH MINERALS, THERAPEUTIC TABLET PO SCH (08:01)
[2022-02-10] MEDS: DOCUSATE SODIUM 250 MG CAPSULE PO SCH ×2 (08:01→20:47)
[2022-02-10] MEDS: METHYLSULFONYLMETHANE PO SCH ×2 (08:01→20:47)
[2022-02-10] MEDS: METOPROLOL SUCCINATE 50 MG ER TABLET PO SCH (08:01)
[2022-02-10] MEDS: GLUCOSAMINE PO SCH ×2 (08:01→20:47)
[2022-02-10] MEDS: LOSARTAN POTASSIUM 50 MG TABLET PO SCH (08:01)
[2022-02-10] MEDS: DICLOFENAC SODIUM 1% 100 GM GEL [2GM] TP SCH ×3 (08:02→20:46)
[2022-02-10] MEDS: ALLOPURINOL 300 MG TABLET PO SCH (08:02)
[2022-02-10] MEDS: APIXABAN 5 MG TABLET PO SCH ×2 (08:02→20:47)
[2022-02-10] MEDS: CEPHALEXIN MONOHYDRATE 500 MG CAPSULE PO SCH ×4 (08:02→20:47)
[2022-02-10 20:42] VITALS: BP 143/80
[2022-02-10] MEDS: TAMSULOSIN HCL 0.4 MG CAPSULE PO SCH (20:47)
[2022-02-10] MEDS: MELATONIN 3 MG TABLET PO PRN (20:47)
[2022-02-10] MEDS: SENNA 187 MG TABLET PO SCH (20:47)
[2022-02-10] MEDS: ATORVASTATIN CALCIUM 40 MG TABLET PO SCH (20:47)
[2022-02-10] MEDS: CALCIPOTRIENE 0.005% TP SCH (20:48)
[2022-02-10] MEDS: CLOBETASOL 0.05% TP PRN (20:48)
[2022-02-11] MEDS: FAMOTIDINE 20 MG TABLET PO SCH ×2 (06:56→15:51)
[2022-02-11] MEDS: OXYGEN THERAPY IH SCH ×2 (08:29→20:00)
[2022-02-11] MEDS: APIXABAN 5 MG TABLET PO SCH ×2 (08:29→20:36)
[2022-02-11] MEDS: MULTIVITAMINS WITH MINERALS, THERAPEUTIC TABLET PO SCH (08:29)
[2022-02-11] MEDS: METOPROLOL SUCCINATE 50 MG ER TABLET PO SCH (08:30)
[2022-02-11] MEDS: METHYLSULFONYLMETHANE PO SCH ×2 (08:30→20:36)
[2022-02-11] MEDS: DOCUSATE SODIUM 250 MG CAPSULE PO SCH ×2 (08:30→20:36)
[2022-02-11] MEDS: LOSARTAN POTASSIUM 50 MG TABLET PO SCH (08:30)
[2022-02-11] MEDS: CHONDROITIN PO SCH ×2 (08:30→20:36)
[2022-02-11] MEDS: GLUCOSAMINE PO SCH ×2 (08:30→20:36)
[2022-02-11] MEDS: ETHYL ALCOHOL 62% ANTISEPTIC NASAL SANITIZER 0.6 ML AMPUL NASAL SCH ×2 (08:31→20:37)
[2022-02-11] MEDS: CEPHALEXIN MONOHYDRATE 500 MG CAPSULE PO SCH ×4 (08:31→20:37)
[2022-02-11] MEDS: DICLOFENAC SODIUM 1% 100 GM GEL [2GM] TP SCH ×3 (08:31→20:37)
[2022-02-11] MEDS: ALLOPURINOL 300 MG TABLET PO SCH (08:32)
[2022-02-11 08:54] VITALS: BP 118/50
[2022-02-11 20:15] VITALS: BP 111/56
[2022-02-11] MEDS: MELATONIN 3 MG TABLET PO PRN (20:36)
[2022-02-11] MEDS: TAMSULOSIN HCL 0.4 MG CAPSULE PO SCH (20:36)
[2022-02-11] MEDS: SENNA 187 MG TABLET PO SCH (20:37)
[2022-02-11] MEDS: CLOBETASOL 0.05% TP PRN (20:37)
[2022-02-11] MEDS: ATORVASTATIN CALCIUM 40 MG TABLET PO SCH (20:37)
[2022-02-11] MEDS: CLOBETASOL 0.05% 60 GM OINTMENT TP SCH (20:37)
[2022-02-12] MEDS: FAMOTIDINE 20 MG TABLET PO SCH ×2 (06:14→16:47)
[2022-02-12 06:37] LABS: BASOPHILS % (AUTO) 0.9 % (0.0-2.0); EOSINOPHILS % (AUTO) 11.6 % (1.0-6.0); HEMOGLOBIN 10.3 g/dL (13.5-17.5); LYMPHOCYTES # (AUTO) 0.7 K/uL (1.0-4.8); LYMPHOCYTES % (AUTO) 14.2 % (22.0-44.0); MEAN CORPUSCULAR HEMOGLOBIN 28.1 pg (26.0-34.0); MEAN CORPUSCULAR HGB CONC 32.3 G/dL (31.0-37.0); MEAN CORPUSCULAR VOLUME 87 fL (80-100); MONOCYTES # (AUTO) 0.5 K/uL (0.1-1.0); MONOCYTES % (AUTO) 10.3 % (2.0-9.0); NEUTROPHILS # (AUTO) 2.9 K/uL (1.8-7.7); PLATELET COUNT (AUTO) 270 K/uL (150-450); RED BLOOD CELL COUNT(AUTO) 3.67 MIL/uL (4.50-5.90); RED CELL DISTRIBUTION WIDTH 14.9 % (11.5-14.5)
[2022-02-12 07:00] LABS: ANION GAP 6 mmol/L (8-16); C-REACTIVE PROTEIN QUANT 1.44 mg/dL (0.00-0.30); CALCIUM, TOTAL 8.8 mg/dL (8.8-10.5); CARBON DIOXIDE 30 mmol/L (22-29); CHLORIDE 104 mmol/L (98-107); CREATININE 0.54 mg/dL (0.60-1.30); GLUCOSE,RANDOM 113 mg/dL (70-110); POTASSIUM 4.1 mmol/L (3.5-5.1); SODIUM SERUM 140 mmol/L (136-145); UREA NITROGEN, BLOOD 13 mg/dL (7-18)
[2022-02-12 07:02] LABS: GLOMERULAR FILTR. RATE CALC > 60 mL/min (>60)
[2022-02-12 08:10] VITALS: BP 110/54
[2022-02-12] MEDS: ETHYL ALCOHOL 62% ANTISEPTIC NASAL SANITIZER 0.6 ML AMPUL NASAL SCH ×2 (08:19→20:35)
[2022-02-12] MEDS: OXYGEN THERAPY IH SCH ×2 (08:19→20:00)
[2022-02-12] MEDS: ALLOPURINOL 300 MG TABLET PO SCH (08:20)
[2022-02-12] MEDS: LOSARTAN POTASSIUM 50 MG TABLET PO SCH (08:20)
[2022-02-12] MEDS: APIXABAN 5 MG TABLET PO SCH ×2 (08:20→20:34)
[2022-02-12] MEDS: METOPROLOL SUCCINATE 50 MG ER TABLET PO SCH (08:20)
[2022-02-12] MEDS: MULTIVITAMINS WITH MINERALS, THERAPEUTIC TABLET PO SCH (08:20)
[2022-02-12] MEDS: DOCUSATE SODIUM 250 MG CAPSULE PO SCH ×2 (08:20→20:34)
[2022-02-12] MEDS: CEPHALEXIN MONOHYDRATE 500 MG CAPSULE PO SCH ×4 (08:20→20:34)
[2022-02-12] MEDS: METHYLSULFONYLMETHANE PO SCH ×2 (08:21→20:34)
[2022-02-12] MEDS: CHONDROITIN PO SCH ×2 (08:21→20:34)
[2022-02-12] MEDS: GLUCOSAMINE PO SCH ×2 (08:21→20:34)
[2022-02-12] MEDS: DICLOFENAC SODIUM 1% 100 GM GEL [2GM] TP SCH ×3 (08:21→20:35)
[2022-02-12] MEDS: CLOBETASOL 0.05% TP PRN ×2 (08:22→20:36)
[2022-02-12 20:15] VITALS: BP 137/62
[2022-02-12] MEDS: MELATONIN 3 MG TABLET PO PRN (20:33)
[2022-02-12] MEDS: ATORVASTATIN CALCIUM 40 MG TABLET PO SCH (20:33)
[2022-02-12] MEDS: SENNA 187 MG TABLET PO SCH (20:34)
[2022-02-12] MEDS: TAMSULOSIN HCL 0.4 MG CAPSULE PO SCH (20:34)
[2022-02-12] MEDS: CALCIPOTRIENE 0.005% TP SCH (20:35)
[2022-02-13] MEDS: FAMOTIDINE 20 MG TABLET PO SCH ×2 (06:57→16:10)
[2022-02-13] MEDS: ETHYL ALCOHOL 62% ANTISEPTIC NASAL SANITIZER 0.6 ML AMPUL NASAL SCH ×2 (07:43→20:42)
[2022-02-13] MEDS: METHYLSULFONYLMETHANE PO SCH ×2 (07:43→20:42)
[2022-02-13] MEDS: CHONDROITIN PO SCH ×2 (07:43→20:42)
[2022-02-13] MEDS: GLUCOSAMINE PO SCH ×2 (07:43→20:42)
[2022-02-13] MEDS: CEPHALEXIN MONOHYDRATE 500 MG CAPSULE PO SCH ×4 (07:44→20:42)
[2022-02-13] MEDS: ALLOPURINOL 300 MG TABLET PO SCH (07:44)
[2022-02-13] MEDS: DOCUSATE SODIUM 250 MG CAPSULE PO SCH ×2 (07:44→20:42)
[2022-02-13] MEDS: METOPROLOL SUCCINATE 50 MG ER TABLET PO SCH (07:44)
[2022-02-13] MEDS: LOSARTAN POTASSIUM 50 MG TABLET PO SCH (07:44)
[2022-02-13] MEDS: MULTIVITAMINS WITH MINERALS, THERAPEUTIC TABLET PO SCH (07:44)
[2022-02-13] MEDS: APIXABAN 5 MG TABLET PO SCH ×2 (07:45→20:44)
[2022-02-13] MEDS: DICLOFENAC SODIUM 1% 100 GM GEL [2GM] TP SCH ×3 (07:45→20:43)
[2022-02-13] MEDS: OXYGEN THERAPY IH SCH ×2 (08:40→20:00)
[2022-02-13 08:44] VITALS: BP 123/54
[2022-02-13 20:20] VITALS: BP 124/57
[2022-02-13] MEDS: ATORVASTATIN CALCIUM 40 MG TABLET PO SCH (20:41)
[2022-02-13] MEDS: SENNA 187 MG TABLET PO SCH (20:42)
[2022-02-13] MEDS: CLOBETASOL 0.05% TP PRN (20:42)
[2022-02-13] MEDS: TAMSULOSIN HCL 0.4 MG CAPSULE PO SCH (20:42)
[2022-02-13] MEDS: MELATONIN 3 MG TABLET PO PRN (20:42)
[2022-02-13] MEDS: CLOBETASOL 0.05% 60 GM OINTMENT TP SCH (20:43)
[2022-02-14] MEDS: FAMOTIDINE 20 MG TABLET PO SCH ×2 (06:21→14:58)
[2022-02-14] MEDS: CHONDROITIN PO SCH ×2 (07:30→21:04)
[2022-02-14] MEDS: METHYLSULFONYLMETHANE PO SCH ×2 (07:30→21:04)
[2022-02-14] MEDS: ETHYL ALCOHOL 62% ANTISEPTIC NASAL SANITIZER 0.6 ML AMPUL NASAL SCH ×2 (07:30→21:02)
[2022-02-14] MEDS: GLUCOSAMINE PO SCH ×2 (07:30→21:04)
[2022-02-14] MEDS: APIXABAN 5 MG TABLET PO SCH ×2 (07:31→21:02)
[2022-02-14] MEDS: METOPROLOL SUCCINATE 50 MG ER TABLET PO SCH (07:31)
[2022-02-14] MEDS: MULTIVITAMINS WITH MINERALS, THERAPEUTIC TABLET PO SCH (07:31)
[2022-02-14] MEDS: LOSARTAN POTASSIUM 50 MG TABLET PO SCH (07:31)
[2022-02-14] MEDS: CEPHALEXIN MONOHYDRATE 500 MG CAPSULE PO SCH (07:31)
[2022-02-14] MEDS: OXYGEN THERAPY IH SCH ×3 (07:36→22:23)
[2022-02-14] MEDS: DOCUSATE SODIUM 250 MG CAPSULE PO SCH ×2 (07:39→21:01)
[2022-02-14] MEDS: ALLOPURINOL 300 MG TABLET PO SCH (07:40)
[2022-02-14] MEDS: DICLOFENAC SODIUM 1% 100 GM GEL [2GM] TP SCH ×3 (07:41→21:04)
[2022-02-14 08:17] VITALS: BP 126/69
[2022-02-14 20:12] VITALS: BP 133/59
[2022-02-14] MEDS: MELATONIN 3 MG TABLET PO PRN (21:01)
[2022-02-14] MEDS: SENNA 187 MG TABLET PO SCH (21:02)
[2022-02-14] MEDS: POLYETHYLENE GLYCOL 3350 17 GM PACKET PO PRN (21:02)
[2022-02-14] MEDS: TAMSULOSIN HCL 0.4 MG CAPSULE PO SCH (21:02)
[2022-02-14] MEDS: CALCIPOTRIENE 0.005% TP SCH (21:02)
[2022-02-14] MEDS: ATORVASTATIN CALCIUM 40 MG TABLET PO SCH (21:02)
[2022-02-15] MEDS: FAMOTIDINE 20 MG TABLET PO SCH (06:08)
[2022-02-15] MEDS: OXYGEN THERAPY IH SCH (08:14)
[2022-02-15 08:26] VITALS: BP 111/54
[2022-02-15] MEDS: ETHYL ALCOHOL 62% ANTISEPTIC NASAL SANITIZER 0.6 ML AMPUL NASAL SCH (08:36)
[2022-02-15] MEDS: DOCUSATE SODIUM 250 MG CAPSULE PO SCH (08:37)
[2022-02-15] MEDS: MULTIVITAMINS WITH MINERALS, THERAPEUTIC TABLET PO SCH (08:37)
[2022-02-15] MEDS: LOSARTAN POTASSIUM 50 MG TABLET PO SCH (08:37)
[2022-02-15] MEDS: METOPROLOL SUCCINATE 50 MG ER TABLET PO SCH (08:38)
[2022-02-15] MEDS: APIXABAN 5 MG TABLET PO SCH (08:38)
[2022-02-15] MEDS: DICLOFENAC SODIUM 1% 100 GM GEL [2GM] TP SCH (08:38)
[2022-02-15] MEDS: ALLOPURINOL 300 MG TABLET PO SCH (08:53)
[2022-02-15] MEDS: CHONDROITIN PO SCH (08:53)
[2022-02-15] MEDS: METHYLSULFONYLMETHANE PO SCH (08:53)
[2022-02-15] MEDS: GLUCOSAMINE PO SCH (08:53)
[2022-02-15] MEDS ORDERED: METO-391 PO (09:33)
[2022-02-15] MEDS ORDERED: DOCU-350 PO (09:33)
[2022-02-15] MEDS ORDERED: TAMS-13 PO (09:33)
[2022-02-15] MEDS ORDERED: FOLI-130 PO (09:33)
[2022-02-15] MEDS ORDERED: MULT-1239 PO (09:33)
[2022-02-15] MEDS ORDERED: FAMO20 PO (09:33)
[2022-02-15] MEDS ORDERED: ATOR40TA71 PO (09:33)
[2022-02-15] MEDS ORDERED: CALC60OI TP (09:33)
[2022-02-15] MEDS ORDERED: ALLO-45 PO (09:33)
[2022-02-15] MEDS ORDERED: DICL100G51 TP (09:33)
[2022-02-15] MEDS ORDERED: CLOB15OI3 TP (09:33)
[2022-02-15] MEDS ORDERED: LOSA-382 PO (09:33)
[2022-02-15] MEDS ORDERED: APIX5TAB PO (09:33)
[2022-02-15] MEDS ORDERED: SENN-187 PO (09:33)
== END 2022-02-15 11:40 | disposition home or self-care (01) | DRG 91 ==
LOC: 2WR 13:36 → UNDOADMIN 13:36
PROVIDERS: ADMIT Physical Medicine & Rehabilitation; ATTEND Physical Medicine & Rehabilitation
DX: G95.9 Disease of spinal cord, unspecified (principal); E43 Unspecified severe protein-calorie malnutrition; G82.50 Quadriplegia, unspecified; E87.1 Hypo-osmolality and hyponatremia; E78.5 Hyperlipidemia, unspecified; D64.9 Anemia, unspecified; I10 Essential (primary) hypertension; I25.10 Atherosclerotic heart disease of native coronary artery without angina pectoris; I48.91 Unspecified atrial fibrillation; N40.1 Benign prostatic hyperplasia with lower urinary tract symptoms; G47.33 Obstructive sleep apnea (adult) (pediatric); M10.9 Gout, unspecified; M54.2 Cervicalgia; L40.9 Psoriasis, unspecified; M48.02 Spinal stenosis, cervical region; R13.10 Dysphagia, unspecified; R33.8 Other retention of urine; Z79.01 Long term (current) use of anticoagulants; Z87.442 Personal history of urinary calculi; Z98.1 Arthrodesis status; Z68.31 Body mass index [BMI] 31.0-31.9, adult; Z79.899 Other long term (current) drug therapy
CPT/HCPCS: 80048; 80053; 81001; 84153; 84550; 85025; 85651; 86140; 87081; 92526; 92610; 93970; 97110; 97112; 97116; 97140; 97150; 97163; 97167; 97530; 97535; 99366; Q9967